=== PATIENT | male | born 1995 | race Caucasian/White ===

== ENCOUNTER → 2016-06-04 | Outpatient (CLI) | payer OTHER ==
--- NOTE | ~2016-06-04 | CT95 ---
[facility] A Service of [facility] RADIOLOGY TEXT RESULTS PATIENT: ANTONIO LINARES LOCATION: [facility] : 95 UNIT #: [id number] AGE: [address]: Asmita Cummins MD SEX: M ORDER DR: [id number] [facility] [address] [place], [place] [address] [id number] O MR#: [id number] Acc #: [id number] NAME: ANTONIO LINARES : 1995 SEX: M STUDY DATE/TIME: 06/04/2016 15:09 UNIT: [facility] ROOM: STUDY DESCRIPTION: CT Lower Ext Rt Wo Cont Attending Physician: Michelle Cummins M.D. Ordering Physician: Michelle Cummins M.D. MEDICAL IMAGING REPORT This report is preliminary unless electronic signature is present EXAM CT right foot with coronal and sagittal reconstructions without contrast 06/04/2016 HISTORY Order states recurrent right fifth metatarsal base pain several months following fifth metatarsal screw fixation. History sheet states right foot fracture 6 months. Status post ORIF. [place] a pop yesterday. COMPARISON Right foot radiographs 06/04/2016, right foot radiographs 05/08/2016, right foot radiographs 11/11/2015, 01/07/2016 and 03/10/2016; CT right foot 03/18/2016. TECHNIQUE This CT exam was performed with one or more of the following radiation dose reduction techniques: automatic exposure control, adjustment of mA and/or kV according to patient size, and iterative reconstruction. FINDINGS Radiographically, the patient has fifth metatarsal proximal screw placement was performed between 11/11/2015 and 01/07/2016 but is not specifically reported. Partially threaded screw in the proximal fifth metatarsal is unchanged in position and demonstrates no evidence of loosening or fracture. There is progressive healing of the fifth metatarsal, nondisplaced transverse metadiaphyseal fracture. Healing is again noted most prominently dorsally and medially. Fracture healing is estimated at approximately 50%. No prospective protocol was obtained. The prior study was performed in [facility] A Service of [facility] RADIOLOGY TEXT RESULTS PATIENT: ANTONIO LINARES LOCATION: [facility] : 95 UNIT #: [id number] AGE: [address]: Asmita Cummins MD SEX: M ORDER DR: direct coronal format accounting for slight technical differences from the current exam. There is mild lateral soft tissue edema. Peroneal tendons appear intact. An os perineum is incidentally noted. No new abnormalities are noted. IMPRESSION 1. Progressive healing of the fifth metatarsal base metadiaphyseal fracture is now estimated at 50%. No evidence of hardware fracture or displacement. 2. The peroneal tendons appear intact. Dictated by... Dunia Moralez M.D. THIS IS AN ELECTRONICALLY VERIFIED REPORT Dunia Moralez M.D. at 06/06/2016 8:03 AM ANDREA/elvira TD: 06/05/2016 15:41 JOB #: [id number] MEDICAL IMAGING REPORT COPY
== END | disposition home or self-care (01) ==
LOC: CCAT 14:29
DX: S92.351G Displaced fracture of fifth metatarsal bone, right foot, subsequent encounter for fracture with delayed healing (principal); M79.671 Pain in right foot
CPT/HCPCS: 73700